=== PATIENT | male | born 1960 | race African-American/Black ===

== ENCOUNTER 2017-03-24 10:41 | Emergency (ER) | payer MEDICAID ==
[~2017-03-24] VITALS: Ht 172.7 cm; Wt 100.0 kg
[~2017-03-24 10:41] MED LIST: INSULIN
[2017-03-24] MEDS ORDERED: KETOROLAC 30MG/ML VIAL IV STA (12:05)
[2017-03-24 12:29] LABS: HEMATOCRIT. 36.4 % (42.0-52.0); HEMOGLOBIN. 12.6 g/dL (14.0-18.0); MEAN CORPUSCULAR HEMOGLOBIN 31.8 pg (28.0-32.0); MEAN CORPUSCULAR VOLUME 92.1 fL (80.0-94.0); MEAN PLATELET VOLUME 6.7 fl (7.4-10.4); PLATELET 338 x1000/uL (130-400); RED BLOOD CELL COUNT 3.96 mill/uL (4.7-6.1); RED CELL DISTRIBUTION WIDTH 12.6 % (11.6-14.6)
[2017-03-24 12:46] LABS: CARBON DIOXIDE 26 mEq/L (21-32); CHLORIDE 105 mEq/L (98-107); TROPONIN I < 0.02 ng/mL (0.00-0.04)
[2017-03-24 13:16] LABS: PLATELET ESTIMATE NORMAL
[2017-03-24 15:42] LABS: *AMPHETAMINES SCREEN URINE NEGATIVE (NEGATIVE); *BARBITURATES SCREEN URINE NEGATIVE (NEGATIVE); *BENZODIAZEPINES SCREEN URINE NEGATIVE (NEGATIVE); *COCAINE SCREEN URINE PRESUMTIVE POSITIVE (NEGATIVE); CANNABINOID URINE SCREEN NEGATIVE (NEGATIVE); METHADONE URINE SCREEN NEGATIVE (NEGATIVE); OPIATES URINE SCREEN NEGATIVE (NEGATIVE); PHENCYCLIDINE URINE SCREEN NEGATIVE (NEGATIVE)
[2017-03-24 16:47] VITALS: BP 106/64
== END 2017-03-24 17:02 | disposition home or self-care (01) ==
LOC: ER 11:13
DX: R07.89 Other chest pain (principal); F14.10 Cocaine abuse, uncomplicated; E11.9 Type 2 diabetes mellitus without complications; E78.00 Pure hypercholesterolemia, unspecified; I10 Essential (primary) hypertension; Z79.4 Long term (current) use of insulin; J45.909 Unspecified asthma, uncomplicated
CPT/HCPCS: 36415; 71010; 80053; 80305; 84484; 85025; 96374; 99285; J1885; Z7610

== ENCOUNTER 2017-11-01 15:18 | Inpatient (IN) | payer MEDICAID ==
[~2017-11-01] VITALS: Ht 182.9 cm; Wt 107.6 kg
[2017-11-01] MEDS ORDERED: MORPHINE SULFATE 4 MG/ML CPJ (NOT FOR IM USE) IV STA (16:15)
[2017-11-01] MEDS ORDERED: SODIUM CHLORIDE 0.9% 1,000 ML IV ONE (16:15)
[2017-11-01] MEDS ORDERED: FAMOTIDINE 20MG/2ML VIAL IV STA (16:15)
[2017-11-01] MEDS ORDERED: ONDANSETRON HCL 4MG/2ML VIAL IV STA (16:15)
[2017-11-01 16:54] LABS: CHLORIDE 98 mEq/L (98-107); HEMATOCRIT. 44.5 % (42.0-52.0); INR 1.2; MEAN CORPUSCULAR HEMOGLOBIN 32.1 pg (28.0-32.0); MEAN PLATELET VOLUME 7.4 fl (7.4-10.4); PLATELET 342 x1000/uL (130-400); PROTHROMBIN TIME 12.2 sec (9.4-11.6); RED BLOOD CELL COUNT 4.69 mill/uL (4.7-6.1); RED CELL DISTRIBUTION WIDTH 12.7 % (11.6-14.6)
[2017-11-01 17:00] LABS: TROPONIN I < 0.02 ng/mL (0.00-0.04)
[2017-11-01] MEDS ORDERED: INSULIN REGULAR (HUMULIN R) UD 100 UNITS/ML SYR SUBCUT ONE (17:15)
[2017-11-01] MEDS ORDERED: SODIUM CHLORIDE 0.9% 1000ML BAG (SEPSIS BOLUS) IV ONE (17:15)
[2017-11-01 17:19] LABS: PLATELET ESTIMATE NORMAL
[2017-11-01] MEDS ORDERED: INSULIN REGULAR (HUMULIN R) 300UNITS/3ML SUBCUT SCH (18:15)
[2017-11-01 20:30] VITALS: BP 130/71
[2017-11-01] MEDS ORDERED: CYCL5TAB PO (22:11)
[2017-11-01] MEDS ORDERED: NPH,100V SUBCUT (22:11)
[2017-11-01] MEDS ORDERED: TRAM50TA3 PO (22:11)
[2017-11-01] MEDS ORDERED: D-ME473S8 PO (22:11)
[2017-11-01] MEDS ORDERED: MELO-106 PO (22:11)
[2017-11-01] MEDS ORDERED: TERA5CAP4 PO (22:11)
[2017-11-01] MEDS ORDERED: HYDR-4009 PO (22:11)
[2017-11-01] MEDS ORDERED: GABA-531 PO (22:11)
[2017-11-01] MEDS ORDERED: ASPI-1158 PO (22:11)
[2017-11-01] MEDS ORDERED: OMEP20CA10 PO (22:11)
[2017-11-01] MEDS ORDERED: FLUT16SP15 INH (22:11)
[2017-11-01] MEDS ORDERED: METH500T6 PO (22:11)
[2017-11-01] MEDS ORDERED: AMLO10TA80 PO (22:11)
[2017-11-01] MEDS ORDERED: ATOR40TA70 PO (22:11)
[2017-11-01] MEDS ORDERED: ALBU18HF2 INH (22:11)
[2017-11-01] MEDS ORDERED: BENA20TA3 PO (22:12)
[2017-11-01] MEDS ORDERED: ACETAMINOPHEN 325MG TABLET PO PRN (23:00)
[2017-11-01] MEDS ORDERED: DOCUSATE SODIUM 100MG CAPSULE PO PRN (23:00)
[2017-11-01] MEDS ORDERED: CLONIDINE 0.1MG TABLET PO PRN (23:00)
[2017-11-01] MEDS ORDERED: ONDANSETRON HCL 4MG/2ML VIAL IV PRN (23:00)
[2017-11-01] MEDS ORDERED: METHOCARBAMOL 500MG TABLET PO PRN (23:15)
[2017-11-01] MEDS ORDERED: DEXTROSE 50% WATER 50ML SYRINGE IV PRN (23:45)
[2017-11-02] VITALS: BP 128/68
[2017-11-02] MEDS: SODIUM CHLORIDE 0.9% 1,000 ML IV SCH ×2 (00:11→21:32)
[2017-11-02] MEDS: HYDROCODONE/ACETAMINOPHEN 10/325MG TABLET PO PRN ×3 (00:14→21:32)
[2017-11-02 02:57] LABS: CLARITY URINE CLOUDY (CLEAR); COLOR URINE YELLOW (YELLOW); KETONES URINE NEGATIVE (NEGATIVE); LEUKOCYTE ESTERASE URINE NEGATIVE (NEGATIVE); NITRITE URINE NEGATIVE (NEGATIVE); OCCULT BLOOD URINE NEGATIVE (NEGATIVE); PROTEIN URINE 1+ (NEGATIVE); SPECIFIC GRAVITY URINE 1.025 (1.005-1.030); UROBILINOGEN URINE 0.2 E.U./dL (0.2-1.0)
[2017-11-02 03:18] LABS: *AMPHETAMINES SCREEN URINE NEGATIVE (NEGATIVE); *BARBITURATES SCREEN URINE NEGATIVE (NEGATIVE); *BENZODIAZEPINES SCREEN URINE NEGATIVE (NEGATIVE); *COCAINE SCREEN URINE PRESUMTIVE POSITIVE (NEGATIVE); CANNABINOID URINE SCREEN NEGATIVE (NEGATIVE); METHADONE URINE SCREEN NEGATIVE (NEGATIVE); OPIATES URINE SCREEN PRESUMTIVE POSITIVE (NEGATIVE); PHENCYCLIDINE URINE SCREEN NEGATIVE (NEGATIVE)
[2017-11-02 04:00] VITALS: BP 136/75
[2017-11-02] MEDS: BLOOD SUGAR DIAGNOSTIC STRIP TEST SCH ×4 (06:32→21:45)
[2017-11-02 07:07] LABS: HEMATOCRIT. 37.7 % (42.0-52.0); HEMOGLOBIN. 12.7 g/dL (14.0-18.0); MEAN CORPUSCULAR HEMOGLOBIN 31.8 pg (28.0-32.0); MEAN CORPUSCULAR VOLUME 94.2 fL (80.0-94.0); MEAN PLATELET VOLUME 7.3 fl (7.4-10.4); PLATELET 303 x1000/uL (130-400); RED CELL DISTRIBUTION WIDTH 12.4 % (11.6-14.6)
[2017-11-02 07:37] LABS: CHLORIDE 106 mEq/L (98-107)
[2017-11-02 07:55] LABS: CREATINE KINASE 499 IU/L (39-308); CREATINE KINASE MB FRACTION 4.1 ng/mL (0.5-3.6); TROPONIN I < 0.02 ng/mL (0.00-0.04)
[2017-11-02 08:00] VITALS: BP 152/87
[2017-11-02] MEDS: ENOXAPARIN 30MG/0.3ML SYR SUBCUT SCH ×2 (08:46→21:44)
[2017-11-02] MEDS: GABAPENTIN 300MG CAPSULE PO SCH ×3 (08:47→17:50)
[2017-11-02] MEDS: OMEPRAZOLE 20MG CAPSULE EXTENDED RELEASE PO SCH (08:47)
[2017-11-02] MEDS: AMLODIPINE 10MG TABLET PO SCH (08:48)
[2017-11-02] MEDS: BENAZEPRIL 20MG TABLET PO SCH (08:48)
[2017-11-02] MEDS: TERAZOSIN HCL 5MG CAPSULE PO SCH (08:48)
[2017-11-02] MEDS: ASPIRIN 81MG EC TABLET PO SCH (08:48)
[2017-11-02] MEDS: INSULIN LISPRO 100 UNITS/ML SUBCUT SCH ×4 (08:55→21:47)
[2017-11-02 12:00] VITALS: BP 132/77
[2017-11-02] MEDS ORDERED: LIDOCAINE HCL/PF 1% 10 MG/ML 5ML VIAL ONE (12:57)
[2017-11-02 15:38] LABS: CREATINE KINASE 456 IU/L (39-308); CREATINE KINASE MB FRACTION 3.8 ng/mL (0.5-3.6); TROPONIN I < 0.02 ng/mL (0.00-0.04)
[2017-11-02 16:07] LABS: PLATELET ESTIMATE NORMAL
[2017-11-02 16:55] VITALS: BP 127/73
[2017-11-02 20:00] VITALS: BP 129/72
[2017-11-02] MEDS: ATORVASTATIN CALCIUM 40MG TABLET PO SCH (21:32)
[2017-11-02] MEDS: INSULIN NPH (HUMULIN-N) 100 UNITS/ML 3ML VIAL SUBCUT SCH (21:42)
[2017-11-03] VITALS: BP_SYST 139; BP_SYST 142; BP_DIAS 74; BP_DIAS 75; BP_DIAS 81
[2017-11-03 04:00] VITALS: BP 119/75
[2017-11-03] MEDS: BLOOD SUGAR DIAGNOSTIC STRIP TEST SCH ×4 (05:46→21:43)
[2017-11-03 06:34] LABS: BASOPHILS % 0.4 % (0.0-2.0); EOSINOPHILS % 2.4 % (0.0-5.0); HEMOGLOBIN. 12.8 g/dL (14.0-18.0); MEAN CORPUSCULAR HEMOGLOBIN 31.6 pg (28.0-32.0); MEAN CORPUSCULAR VOLUME 93.5 fL (80.0-94.0); MEAN PLATELET VOLUME 7.4 fl (7.4-10.4); MONOCYTES % 12.4 % (2.0-8.0); NEUTROPHILS % 50.8 % (40.0-76.0); PLATELET 319 x1000/uL (130-400); RED BLOOD CELL COUNT 4.06 mill/uL (4.7-6.1); RED CELL DISTRIBUTION WIDTH 12.5 % (11.6-14.6)
[2017-11-03 06:58] LABS: CHLORIDE 106 mEq/L (98-107)
[2017-11-03 07:03] LABS: PHOSPHORUS 2.8 mg/dL (2.5-4.9)
[2017-11-03 08:00] VITALS: BP_SYST 126; BP_SYST 127; BP_SYST 155; BP_DIAS 73; BP_DIAS 75; BP_DIAS 86
[2017-11-03] MEDS: INSULIN LISPRO 100 UNITS/ML SUBCUT SCH ×4 (08:10→20:57)
[2017-11-03] MEDS: ASPIRIN 81MG EC TABLET PO SCH (08:47)
[2017-11-03] MEDS: OMEPRAZOLE 20MG CAPSULE EXTENDED RELEASE PO SCH (08:47)
[2017-11-03] MEDS: AMLODIPINE 10MG TABLET PO SCH (08:47)
[2017-11-03] MEDS: ENOXAPARIN 30MG/0.3ML SYR SUBCUT SCH ×2 (08:48→20:39)
[2017-11-03] MEDS: TERAZOSIN HCL 5MG CAPSULE PO SCH (08:48)
[2017-11-03] MEDS: BENAZEPRIL 20MG TABLET PO SCH (08:54)
[2017-11-03] MEDS: GABAPENTIN 300MG CAPSULE PO SCH ×3 (08:54→17:52)
[2017-11-03] MEDS ORDERED: POTASSIUM CHLORIDE 20MEQ TABLET SR PO NR (09:30)
[2017-11-03 11:02] LABS: HEPATITIS B SURFACE ANTIGEN NEGATIVE
[2017-11-03 12:00] VITALS: BP 126/71
[2017-11-03 16:00] VITALS: BP 121/72
[2017-11-03] MEDS: SODIUM CHLORIDE 0.9% 1,000 ML IV SCH (16:23)
[2017-11-03 20:16] VITALS: BP 140/77
[2017-11-03] MEDS: ATORVASTATIN CALCIUM 40MG TABLET PO SCH (20:37)
[2017-11-03] MEDS: HYDROCODONE/ACETAMINOPHEN 10/325MG TABLET PO PRN (20:38)
[2017-11-03] MEDS: INSULIN NPH (HUMULIN-N) 100 UNITS/ML 3ML VIAL SUBCUT SCH (20:58)
[2017-11-04] VITALS: BP_SYST 113; BP_SYST 124; BP_SYST 127; BP_DIAS 64; BP_DIAS 69; BP_DIAS 76
[2017-11-04] MEDS: GUAIFENESIN 200MG/10ML SUGAR FREE UDC PO PRN ×2 (00:55→08:20)
[2017-11-04] MEDS: SODIUM CHLORIDE 0.9% 1,000 ML IV SCH (00:56)
[2017-11-04 04:00] VITALS: BP 129/71
[2017-11-04] MEDS: BLOOD SUGAR DIAGNOSTIC STRIP TEST SCH (06:00)
[2017-11-04] MEDS: OMEPRAZOLE 20MG CAPSULE EXTENDED RELEASE PO SCH (07:33)
[2017-11-04] MEDS: INSULIN LISPRO 100 UNITS/ML SUBCUT SCH (07:34)
[2017-11-04 08:00] VITALS: BP_SYST 112; BP_SYST 120; BP_SYST 130; BP_DIAS 55; BP_DIAS 71; BP_DIAS 80
[2017-11-04 08:11] LABS: EOSINOPHILS % 2.2 % (0.0-5.0); HEMATOCRIT. 37.8 % (42.0-52.0); HEMOGLOBIN. 12.7 g/dL (14.0-18.0); LYMPHOCYTES % 30.4 % (20.0-50.0); MEAN CORPUSCULAR HEMOGLOBIN 31.3 pg (28.0-32.0); MEAN CORPUSCULAR VOLUME 92.9 fL (80.0-94.0); MEAN PLATELET VOLUME 7.7 fl (7.4-10.4); MONOCYTES % 10.7 % (2.0-8.0); NEUTROPHILS % 55.7 % (40.0-76.0); PLATELET 324 x1000/uL (130-400); RED BLOOD CELL COUNT 4.07 mill/uL (4.7-6.1); RED CELL DISTRIBUTION WIDTH 12.5 % (11.6-14.6)
[2017-11-04] MEDS: ASPIRIN 81MG EC TABLET PO SCH (08:19)
[2017-11-04] MEDS: GABAPENTIN 300MG CAPSULE PO SCH (08:20)
[2017-11-04] MEDS: AMLODIPINE 10MG TABLET PO SCH (08:20)
[2017-11-04] MEDS: ENOXAPARIN 30MG/0.3ML SYR SUBCUT SCH (08:20)
[2017-11-04] MEDS: TERAZOSIN HCL 5MG CAPSULE PO SCH (08:20)
[2017-11-04] MEDS: BENAZEPRIL 20MG TABLET PO SCH (08:20)
[2017-11-04 09:01] LABS: CHLORIDE 109 mEq/L (98-107); PHOSPHORUS 2.9 mg/dL (2.5-4.9)
[2017-11-04 09:27] VITALS: BP 130/80
[2017-11-04 12:00] VITALS: BP 118/50
== END 2017-11-04 12:20 | disposition home or self-care (01) | DRG 204 ==
LOC: ER 15:18 → 7WST 17:22 → EDBEDREQ 17:25 → ENRESERV 19:30
PROVIDERS: ADMIT Internal Medicine; ATTEND Internal Medicine
PROC: 4A00X4Z Measurement of Central Nervous Electrical Activity, External Approach (ICD-10-PCS; principal; 2017-11-03)
DX: I95.1 Orthostatic hypotension (principal); E87.2 Acidosis; E11.22 Type 2 diabetes mellitus with diabetic chronic kidney disease; N17.9 Acute kidney failure, unspecified; N18.3 Chronic kidney disease, stage 3 (moderate); E11.40 Type 2 diabetes mellitus with diabetic neuropathy, unspecified; E87.1 Hypo-osmolality and hyponatremia; F14.129 Cocaine abuse with intoxication, unspecified; Z83.3 Family history of diabetes mellitus; E11.65 Type 2 diabetes mellitus with hyperglycemia; J45.909 Unspecified asthma, uncomplicated; D64.9 Anemia, unspecified; E78.00 Pure hypercholesterolemia, unspecified; E66.9 Obesity, unspecified; F17.200 Nicotine dependence, unspecified, uncomplicated; I12.9 Hypertensive chronic kidney disease with stage 1 through stage 4 chronic kidney disease, or unspecified chronic kidney disease; W18.39XA Other fall on same level, initial encounter; K21.9 Gastro-esophageal reflux disease without esophagitis; Z79.82 Long term (current) use of aspirin; Z82.49 Family history of ischemic heart disease and other diseases of the circulatory system; Y93.89 Activity, other specified; Y92.89 Other specified places as the place of occurrence of the external cause; Y99.8 Other external cause status; Z79.4 Long term (current) use of insulin; Z72.89 Other problems related to lifestyle; Z68.32 Body mass index [BMI] 32.0-32.9, adult; T40.5X5A Adverse effect of cocaine, initial encounter
CPT/HCPCS: 36415; 70544; 70553; 71045; 76770; 80048; 80053; 80061; 80305; 81003; 82550; 82553; 82962; 83036; 83605; 83690; 83735; 83880; 84100; 84443; 84484; 85025; 85610; 86803; 87040; 87086; 87186; 87340; 93005; 93306; 93880; 96361; 96372; 96374; 96375; 97116; 97162; 97165; 99285; G0482; J1650; J1815; J2270; J2405; J3490; J7030

== ENCOUNTER 2019-04-09 07:18 | Emergency (ER) | payer MEDICAID ==
[~2019-04-09] VITALS: Ht 175.3 cm; Wt 110.0 kg
[~2019-04-09 07:18] MED LIST changes: +ALBU18HF2 INH; +AMLO10TA80 PO; +ASPI-1158 PO; +ATOR40TA70 PO; +BENA20TA10 PO; +CYCL5TAB PO; +D-ME473S8 PO; +FLUT16SP15 INH; +GABA-531 PO; +HYDR-4009 PO; -INSULIN; +MELO-106 PO; +METH500T6 PO; +NPH,100V SUBCUT; +OMEP20CA5 PO; +TERA5CAP4 PO; +TRAM50TA3 PO
[2019-04-09] MEDS ORDERED: LIDOCAINE HCL/PF 1% 10 MG/ML 5ML VIAL IJ ONE (09:15)
[2019-04-09] MEDS ORDERED: BACITRACIN ZINC OINT UDPKT TOP ONE (09:15)
[2019-04-09] MEDS ORDERED: TETANUS, DIPHTHERIA, PERTUSSIS VAC/PF 0.5ML (>7YR OLD) IM ONE (09:15)
[2019-04-09] MEDS ORDERED: BACITRACIN 15GM TUBE TOP NR (10:15)
[2019-04-09 11:40] VITALS: BP 135/82
== END 2019-04-09 11:43 | disposition home or self-care (01) ==
LOC: ER 07:18
DX: S01.511A Laceration without foreign body of lip, initial encounter (principal); J45.909 Unspecified asthma, uncomplicated; E11.9 Type 2 diabetes mellitus without complications; I10 Essential (primary) hypertension; R55 Syncope and collapse; Z87.448 Personal history of other diseases of urinary system; Z79.4 Long term (current) use of insulin; Z79.899 Other long term (current) drug therapy; Y04.2XXA Assault by strike against or bumped into by another person, initial encounter; Y93.89 Activity, other specified; Y92.89 Other specified places as the place of occurrence of the external cause; Y99.8 Other external cause status
CPT/HCPCS: 12011; 90471; 90715; 99283; J3490

== ENCOUNTER 2019-04-11 12:35 | Emergency (ER) | payer MEDICAID ==
[~2019-04-11] VITALS: Ht 167.6 cm; Wt 108.0 kg
[2019-04-11 13:28] VITALS: BP 149/78
[2019-04-11] MEDS ORDERED: BACITRACIN ZINC OINT UDPKT TOP ONE (13:30)
== END 2019-04-11 13:28 | disposition home or self-care (01) ==
LOC: ER 12:35
DX: Z48.00 Encounter for change or removal of nonsurgical wound dressing (principal); I10 Essential (primary) hypertension; E11.9 Type 2 diabetes mellitus without complications; J45.909 Unspecified asthma, uncomplicated
CPT/HCPCS: 99282

== ENCOUNTER 2019-04-26 11:58 | Emergency (ER) | payer MEDICAID ==
[~2019-04-26] VITALS: Ht 167.6 cm; Wt 107.0 kg
[2019-04-26 13:13] VITALS: BP 160/91
== END 2019-04-26 13:13 | disposition home or self-care (01) ==
LOC: ER 13:06
DX: S01.511D Laceration without foreign body of lip, subsequent encounter (principal); X58.XXXD Exposure to other specified factors, subsequent encounter; J45.909 Unspecified asthma, uncomplicated; E11.9 Type 2 diabetes mellitus without complications; I10 Essential (primary) hypertension; F17.200 Nicotine dependence, unspecified, uncomplicated; F12.10 Cannabis abuse, uncomplicated; Z79.82 Long term (current) use of aspirin; Z79.4 Long term (current) use of insulin; Z79.899 Other long term (current) drug therapy
CPT/HCPCS: 99281

== ENCOUNTER 2020-02-02 22:45 | Inpatient (IN) | payer MEDICAID ==
[~2020-02-02] VITALS: Ht 165.1 cm; Wt 106.6 kg
[~2020-02-02 22:45] MED LIST changes: +OMEP20CA14 PO; -OMEP20CA5 PO
[2020-02-02] MEDS ORDERED: IPRATROPIUM BROMIDE (0.02%) 0.5MG/2.5ML NEB HHN STA (23:43)
[2020-02-02] MEDS ORDERED: METHYLPREDNISOLONE SOD SUCC 125 MG/2 ML VIAL IV STA (23:43)
[2020-02-02] MEDS ORDERED: ALBUTEROL (0.083%) 2.5MG/3ML NEB HHN STA (23:43)
[2020-02-03 00:32] LABS: BASOPHILS % 1.6 % (0.0-2.0); EOSINOPHILS % 1.7 % (0.0-5.0); HEMATOCRIT. 38.5 % (42.0-52.0); HEMOGLOBIN. 13.4 g/dL (14.0-18.0); LYMPHOCYTES % 35.3 % (20.0-50.0); MEAN CORPUSCULAR HEMOGLOBIN 32.4 pg (28.0-32.0); MEAN CORPUSCULAR VOLUME 93.2 fL (80.0-94.0); MEAN PLATELET VOLUME 7.8 fl (7.4-10.4); MONOCYTES % 4.6 % (2.0-8.0); NEUTROPHILS % 56.8 % (40.0-76.0); PLATELET 351 x1000/uL (130-400); RED BLOOD CELL COUNT 4.13 mill/uL (4.7-6.1); RED CELL DISTRIBUTION WIDTH 13.1 % (11.6-14.6)
[2020-02-03 00:34] LABS: CHLORIDE 107 mEq/L (98-107)
[2020-02-03] MEDS ORDERED: METHOCARBAMOL 500MG TABLET PO PRN (12:30)
[2020-02-03] MEDS ORDERED: ENOXAPARIN 40MG/0.4ML SYR SUBCUT SCH (12:30)
[2020-02-03] MEDS ORDERED: CLONIDINE 0.1MG TABLET PO PRN (12:30)
[2020-02-03] MEDS ORDERED: ONDANSETRON HCL 4MG/2ML INJ IV PRN (12:30)
[2020-02-03] MEDS ORDERED: HYDROCODONE/ACETAMINOPHEN 10/325MG TABLET PO PRN (12:30)
[2020-02-03] MEDS ORDERED: ACETAMINOPHEN 325MG TABLET PO PRN (12:30)
[2020-02-03 12:55] VITALS: BP 144/73
[2020-02-03] MEDS: GABAPENTIN 300MG CAPSULE PO SCH ×2 (14:01→18:18)
[2020-02-03] MEDS: OMEPRAZOLE 20MG CAPSULE EXTENDED RELEASE PO SCH (14:02)
[2020-02-03] MEDS: BENAZEPRIL 10MG TABLET PO SCH (14:02)
[2020-02-03] MEDS: TERAZOSIN HCL 5MG CAPSULE PO SCH (14:03)
[2020-02-03] MEDS: AMLODIPINE 10MG TABLET PO SCH (14:03)
[2020-02-03] MEDS: ASPIRIN 81MG EC TABLET PO SCH (14:03)
[2020-02-03] MEDS: METHYLPREDNISOLONE SOD SUCC 125 MG/2 ML VIAL IV SCH ×2 (14:04→21:28)
[2020-02-03] MEDS: ENOXAPARIN 30MG/0.3ML SYR SUBCUT SCH ×2 (14:04→21:27)
[2020-02-03 16:00] VITALS: BP 100/55
[2020-02-03 17:16] LABS: CHLORIDE 100 mEq/L (98-107); HEMATOCRIT. 39.1 % (42.0-52.0); HEMOGLOBIN. 13.3 g/dL (14.0-18.0); MEAN CORPUSCULAR HEMOGLOBIN 32.1 pg (28.0-32.0); MEAN CORPUSCULAR VOLUME 94.4 fL (80.0-94.0); MEAN PLATELET VOLUME 8.2 fl (7.4-10.4); PLATELET 372 x1000/uL (130-400); RED BLOOD CELL COUNT 4.14 mill/uL (4.7-6.1); RED CELL DISTRIBUTION WIDTH 12.9 % (11.6-14.6)
[2020-02-03 17:25] LABS: CREATINE KINASE 770 IU/L (39-308)
[2020-02-03 17:27] LABS: CREATINE KINASE MB FRACTION 8.5 ng/mL (0.5-3.6)
[2020-02-03 18:05] LABS: PLATELET ESTIMATE NORMAL
[2020-02-03] MEDS ORDERED: DEXTROSE 50% WATER 50ML SYRINGE IV NR (18:15)
[2020-02-03] MEDS ORDERED: INSULIN REGULAR (HUMULIN R) UD 100 UNITS/ML SYR IV NR (19:00)
[2020-02-03 20:00] VITALS: BP 118/70
[2020-02-03] MEDS: IPRATROPIUM/ALBUTEROL 0.5-3(2.5)MG/3ML NEB HHN SCH ×2 (21:00→23:51)
[2020-02-03] MEDS ORDERED: INSULIN NPH (HUMULIN-N) 100 UNITS/ML 3ML VIAL SUBCUT SCH (21:00)
[2020-02-03 21:26] LABS: *AMPHETAMINES SCREEN URINE NEGATIVE (NEGATIVE)
[2020-02-03 21:27] LABS: *BARBITURATES SCREEN URINE NEGATIVE (NEGATIVE); *BENZODIAZEPINES SCREEN URINE NEGATIVE (NEGATIVE); *COCAINE SCREEN URINE PRESUMTIVE POSITIVE (NEGATIVE); METHADONE URINE SCREEN NEGATIVE (NEGATIVE); OPIATES URINE SCREEN NEGATIVE (NEGATIVE)
[2020-02-03] MEDS: ATORVASTATIN CALCIUM 40MG TABLET PO SCH (21:27)
[2020-02-03 21:28] LABS: CANNABINOID URINE SCREEN NEGATIVE (NEGATIVE); PHENCYCLIDINE URINE SCREEN PRESUMTIVE POSITIVE (NEGATIVE)
[2020-02-03] MEDS ORDERED: DEXTROSE 50% WATER 50ML SYRINGE IV PRN (23:30)
[2020-02-04] VITALS (7 sets, daily range): BP systolic 112–144; BP diastolic 34–70
[2020-02-04 00:39] LABS: CHLORIDE 97 mEq/L (98-107)
[2020-02-04 00:48] LABS: CREATINE KINASE 658 IU/L (39-308)
[2020-02-04 00:50] LABS: CREATINE KINASE MB FRACTION 8.2 ng/mL (0.5-3.6)
[2020-02-04] MEDS ORDERED: DEXTROSE 50% WATER 50ML SYRINGE IV PRN (01:00)
[2020-02-04] MEDS: INSULIN LISPRO 100 UNITS/ML SUBCUT SCH ×6 (01:34→23:16)
[2020-02-04] MEDS ORDERED: SODIUM POLYSTYRENE SULFONATE 15 G/60 ML BOT PO NR (02:00)
[2020-02-04] MEDS: IPRATROPIUM/ALBUTEROL 0.5-3(2.5)MG/3ML NEB HHN SCH ×5 (04:18→20:55)
[2020-02-04 05:53] LABS: HEMATOCRIT. 38.5 % (42.0-52.0); HEMOGLOBIN. 13.2 g/dL (14.0-18.0); MEAN CORPUSCULAR HEMOGLOBIN 32.1 pg (28.0-32.0); MEAN CORPUSCULAR VOLUME 93.4 fL (80.0-94.0); MEAN PLATELET VOLUME 8.1 fl (7.4-10.4); PLATELET 366 x1000/uL (130-400); RED BLOOD CELL COUNT 4.12 mill/uL (4.7-6.1); RED CELL DISTRIBUTION WIDTH 13.3 % (11.6-14.6)
[2020-02-04] MEDS: BLOOD SUGAR DIAGNOSTIC STRIP TEST SCH ×4 (06:14→21:17)
[2020-02-04] MEDS: METHYLPREDNISOLONE SOD SUCC 125 MG/2 ML VIAL IV SCH (06:14)
[2020-02-04] MEDS: OMEPRAZOLE 20MG CAPSULE EXTENDED RELEASE PO SCH (06:14)
[2020-02-04] MEDS ORDERED: BLOOD SUGAR DIAGNOSTIC STRIP TEST SCH (06:45)
[2020-02-04] MEDS ORDERED: INSULIN LISPRO 100 UNITS/ML SUBCUT SCH ×2 (07:15)
[2020-02-04] MEDS: AMLODIPINE 10MG TABLET PO SCH (08:37)
[2020-02-04] MEDS: GABAPENTIN 300MG CAPSULE PO SCH ×3 (08:37→17:38)
[2020-02-04] MEDS: TERAZOSIN HCL 5MG CAPSULE PO SCH (08:38)
[2020-02-04] MEDS: ASPIRIN 81MG EC TABLET PO SCH (08:38)
[2020-02-04] MEDS: ENOXAPARIN 30MG/0.3ML SYR SUBCUT SCH ×2 (08:39→21:48)
[2020-02-04] MEDS: BENAZEPRIL 10MG TABLET PO SCH (08:39)
[2020-02-04] MEDS: PREDNISONE 20MG TABLET PO SCH (10:56)
[2020-02-04] MEDS: INSULIN GLARGINE UD 100 UNITS/ML SYR SUBCUT SCH ×2 (11:00→21:49)
[2020-02-04 13:40] LABS: PLATELET ESTIMATE NORMAL
[2020-02-04] MEDS: ATORVASTATIN CALCIUM 40MG TABLET PO SCH (21:47)
[2020-02-05] VITALS: BP 127/56
[2020-02-05] MEDS: IPRATROPIUM/ALBUTEROL 0.5-3(2.5)MG/3ML NEB HHN SCH ×2 (00:29→04:31)
[2020-02-05 04:00] VITALS: BP 113/59
[2020-02-05] MEDS: BLOOD SUGAR DIAGNOSTIC STRIP TEST SCH (06:08)
[2020-02-05] MEDS: PREDNISONE 20MG TABLET PO SCH (06:39)
[2020-02-05] MEDS: OMEPRAZOLE 20MG CAPSULE EXTENDED RELEASE PO SCH (06:39)
[2020-02-05] MEDS: INSULIN LISPRO 100 UNITS/ML SUBCUT SCH (06:39)
[2020-02-05] MEDS ORDERED: POTASSIUM CHLORIDE 20MEQ TABLET SR PO SCH (07:00)
[2020-02-05 08:00] VITALS: BP 122/69
[2020-02-05] MEDS: BENAZEPRIL 10MG TABLET PO SCH (09:00)
[2020-02-05] MEDS: ENOXAPARIN 30MG/0.3ML SYR SUBCUT SCH (09:00)
[2020-02-05] MEDS: TERAZOSIN HCL 5MG CAPSULE PO SCH (09:00)
[2020-02-05] MEDS: AMLODIPINE 10MG TABLET PO SCH (09:00)
[2020-02-05] MEDS: ASPIRIN 81MG EC TABLET PO SCH (09:00)
[2020-02-05] MEDS: GABAPENTIN 300MG CAPSULE PO SCH (09:00)
== END 2020-02-05 08:30 | disposition left against medical advice (07) | DRG 140 ==
LOC: ER 22:45 → MICUSO 02-03 01:50 → EDBEDREQ 02-03 01:54 → 5WST 02-03 12:58
PROVIDERS: ADMIT Internal Medicine; ATTEND Internal Medicine
DX: J44.1 Chronic obstructive pulmonary disease with (acute) exacerbation (principal); E11.42 Type 2 diabetes mellitus with diabetic polyneuropathy; E11.65 Type 2 diabetes mellitus with hyperglycemia; M94.0 Chondrocostal junction syndrome [Tietze]; E66.9 Obesity, unspecified; F17.200 Nicotine dependence, unspecified, uncomplicated; Z53.29 Procedure and treatment not carried out because of patient's decision for other reasons; E78.5 Hyperlipidemia, unspecified; F12.90 Cannabis use, unspecified, uncomplicated; I10 Essential (primary) hypertension; Z79.51 Long term (current) use of inhaled steroids; Z79.899 Other long term (current) drug therapy; Z79.82 Long term (current) use of aspirin; Z71.3 Dietary counseling and surveillance; Z71.6 Tobacco abuse counseling; Z79.1 Long term (current) use of non-steroidal anti-inflammatories (NSAID); Z79.4 Long term (current) use of insulin
CPT/HCPCS: 36415; 71045; 80048; 80053; 80305; 82550; 82553; 82962; 83036; 83880; 84484; 85025; 93005; 93970; 94640; 96374; 99285; J1650; J1815; J2930; J7512

== ENCOUNTER 2020-03-16 17:16 | Emergency (ER) | payer MEDICAID ==
[~2020-03-16] VITALS: Ht 167.6 cm; Wt 106.0 kg
[2020-03-16 19:50] VITALS: BP 121/67
== END 2020-03-16 20:00 | disposition home or self-care (01) ==
LOC: ER 17:16
DX: T18.0XXA Foreign body in mouth, initial encounter (principal); X58.XXXA Exposure to other specified factors, initial encounter; Y93.89 Activity, other specified; Y92.89 Other specified places as the place of occurrence of the external cause; I10 Essential (primary) hypertension; E11.9 Type 2 diabetes mellitus without complications; J45.909 Unspecified asthma, uncomplicated; J44.9 Chronic obstructive pulmonary disease, unspecified; Z79.4 Long term (current) use of insulin; Z79.899 Other long term (current) drug therapy; Z79.51 Long term (current) use of inhaled steroids
CPT/HCPCS: 99281

== ENCOUNTER 2021-11-01 14:37 | Inpatient (IN) | payer MEDICAID ==
[~2021-11-01] VITALS: Ht 167.6 cm; Wt 99.3 kg
[~2021-11-01 14:37] MED LIST changes: -ASPI-1158 PO; +ASPI-1406 PO; -GABA-531 PO; +GABA-532 PO; +METH-773 PO; -METH500T6 PO
[2021-11-01] MEDS ORDERED: TETANUS, DIPHTHERIA, PERTUSSIS VAC/PF 0.5ML (>10YR OLD) IM ONE (15:00)
[2021-11-01] MEDS ORDERED: LIDOCAINE HCL/PF 1% 10 MG/ML 5ML VIAL INFIL ONE (15:00)
[2021-11-01] MEDS ORDERED: BACITRACIN ZINC OINT UDPKT TOP ONE (15:00)
[2021-11-01] MEDS ORDERED: LIDOCAINE HCL 1% 10 MG/ML 10ML VIAL INJ ONE (15:15)
[2021-11-01] MEDS ORDERED: CEFTRIAXONE 1 G PREMIX 50 ML IV ONE (17:00)
[2021-11-01] MEDS ORDERED: SODIUM CHLORIDE 0.9% 1,000 ML IV ONE (17:00)
[2021-11-01] MEDS ORDERED: VANCOMYCIN 1G PREMIX 200 ML IV SCH (18:00)
[2021-11-01 18:41] LABS: CHLORIDE 102 mEq/L (98-107)
[2021-11-01] MEDS ORDERED: MORPHINE SULFATE 4 MG/ML CPJ (NOT FOR IM USE) IV NR (18:45)
[2021-11-01 19:54] LABS: BASOPHILS % 0.9 % (0.0-2.0); EOSINOPHILS % 2.1 % (0.0-5.0); HEMATOCRIT. 30.4 % (42.0-52.0); HEMOGLOBIN. 10.4 g/dL (14.0-18.0); LYMPHOCYTES % 38.5 % (20.0-50.0); MEAN CORPUSCULAR HEMOGLOBIN 31.3 pg (28.0-32.0); MEAN CORPUSCULAR VOLUME 91.2 fL (80.0-94.0); MEAN PLATELET VOLUME 6.5 fl (7.4-10.4); MONOCYTES % 7.1 % (2.0-8.0); NEUTROPHILS % 51.4 % (40.0-76.0); PLATELET 392 x1000/uL (130-400); RED BLOOD CELL COUNT 3.33 mill/uL (4.7-6.1); RED CELL DISTRIBUTION WIDTH 12.5 % (11.6-14.6)
[2021-11-01] MEDS: VANCOMYCIN 1G PREMIX 200 ML IV SCH (23:40)
[2021-11-02] MEDS ORDERED: KETOROLAC 15MG/ML VIAL IV ONE (01:00)
[2021-11-02 06:16] VITALS: BP 140/83
[2021-11-02 08:00] VITALS: BP 135/81
[2021-11-02] MEDS ORDERED: DEXTROSE 50% WATER 50ML SYRINGE IV PRN (08:15)
[2021-11-02] MEDS ORDERED: ACETAMINOPHEN 325MG TABLET PO PRN (08:30)
[2021-11-02] MEDS: OMEPRAZOLE 20MG CAPSULE EXTENDED RELEASE PO SCH (08:40)
[2021-11-02] MEDS: PIPERACILLIN/TAZOBACTAM 3.375 G in DEXTROSE 5% WATER 50 ML IV SCH ×3 (09:35→21:07)
[2021-11-02] MEDS: MORPHINE SULFATE 2 MG/ML CPJ (NOT FOR IM USE) IV PRN ×2 (09:47→17:30)
[2021-11-02] MEDS: BLOOD SUGAR DIAGNOSTIC STRIP TEST SCH ×3 (11:56→21:04)
[2021-11-02 12:00] VITALS: BP 175/72
[2021-11-02] MEDS: INSULIN LISPRO 100 UNITS/ML SUBCUT SCH ×3 (12:22→21:05)
[2021-11-02] MEDS: CLONIDINE 0.1MG TABLET PO PRN (12:22)
[2021-11-02 14:50] LABS: BASOPHILS % 0.8 % (0.0-2.0); EOSINOPHILS % 3.2 % (0.0-5.0); HEMATOCRIT. 30.5 % (42.0-52.0); HEMOGLOBIN. 10.6 g/dL (14.0-18.0); LYMPHOCYTES % 42.8 % (20.0-50.0); MEAN CORPUSCULAR HEMOGLOBIN 31.4 pg (28.0-32.0); MEAN CORPUSCULAR VOLUME 90.5 fL (80.0-94.0); MEAN PLATELET VOLUME 6.4 fl (7.4-10.4); MONOCYTES % 6.1 % (2.0-8.0); NEUTROPHILS % 47.1 % (40.0-76.0); PLATELET 397 x1000/uL (130-400); RED BLOOD CELL COUNT 3.37 mill/uL (4.7-6.1); RED CELL DISTRIBUTION WIDTH 12.7 % (11.6-14.6)
[2021-11-02 15:07] LABS: CHLORIDE 105 mEq/L (98-107)
[2021-11-02 16:00] VITALS: BP 138/62
[2021-11-02] MEDS ORDERED: INFLUENZA VACCINE 05/PF 0.5 ML SYRINGE IM ONE (16:45)
[2021-11-02] MEDS: VANCOMYCIN 1G PREMIX 200 ML IV SCH (16:56)
[2021-11-02 20:00] VITALS: BP 140/77
[2021-11-02] MEDS ORDERED: NALOXONE HCL 0.4MG/ML VIAL IV PRN (20:45)
[2021-11-03 04:00] VITALS: BP 162/68
[2021-11-03] MEDS: PIPERACILLIN/TAZOBACTAM 3.375 G in DEXTROSE 5% WATER 50 ML IV SCH ×3 (05:25→22:50)
[2021-11-03] MEDS: HYDROCODONE/ACETAMINOPHEN 5/325MG TABLET PO PRN ×3 (05:25→22:51)
[2021-11-03] MEDS: CLONIDINE 0.1MG TABLET PO PRN (05:26)
[2021-11-03] MEDS: OMEPRAZOLE 20MG CAPSULE EXTENDED RELEASE PO SCH (06:49)
[2021-11-03] MEDS: BLOOD SUGAR DIAGNOSTIC STRIP TEST SCH ×4 (06:49→21:00)
[2021-11-03 08:00] VITALS: BP 172/77
[2021-11-03] MEDS: INSULIN LISPRO 100 UNITS/ML SUBCUT SCH ×4 (09:01→23:50)
[2021-11-03] MEDS: VANCOMYCIN 1G PREMIX 200 ML IV SCH (10:49)
[2021-11-03 12:00] VITALS: BP 150/51
[2021-11-03] MEDS ORDERED: LIDOCAINE HCL 1% 10 MG/ML 10ML VIAL ONE ×2 (12:27→18:24)
[2021-11-03] MEDS: LISINOPRIL 20MG TABLET PO SCH (13:51)
[2021-11-03] MEDS: GABAPENTIN 300MG CAPSULE PO SCH ×2 (13:51→22:49)
[2021-11-03] MEDS: AMLODIPINE 10MG TABLET PO SCH (13:52)
[2021-11-03 16:00] VITALS: BP 152/72
[2021-11-03] MEDS ORDERED: INS NPH/REG HM 70-30 100 UNITS/ML 3ML VIAL (HUMULIN 70-30) SUBCUT SCH (17:00)
[2021-11-03] MEDS ORDERED: POLYMYXIN B SULFATE 500000 UNITS/VIAL ONE (18:25)
[2021-11-03] MEDS ORDERED: BUPIVACAINE HCL/PF 0.5% (5MG/ML) 10ML ONE (18:25)
[2021-11-03] MEDS ORDERED: PROPOFOL 200MG/20ML VIAL IV ONE (19:12)
[2021-11-03] MEDS ORDERED: MIDAZOLAM HCL 2 MG/2 ML VIAL ONE (19:13)
[2021-11-03] MEDS ORDERED: CEFAZOLIN SODIUM 1000MG/VIAL ONE (19:13)
[2021-11-03] MEDS ORDERED: FENTANYL CITRATE/PF 50MCG/ML 2ML VIAL ONE (19:23)
[2021-11-03] MEDS ORDERED: ONDANSETRON HCL 4MG/2ML INJ IV PRN (20:00)
[2021-11-03] MEDS ORDERED: FENTANYL CITRATE/PF 50MCG/ML 2ML VIAL IV PRN (20:00)
[2021-11-03] MEDS: HYDROMORPHONE HCL/PF 2MG/ML CPJ IV PRN ×3 (20:02→20:44)
[2021-11-03] MEDS: ATORVASTATIN CALCIUM 40MG TABLET PO SCH (22:49)
[2021-11-04 04:00] VITALS: BP 125/77
[2021-11-04] MEDS: VANCOMYCIN 1G PREMIX 200 ML IV SCH ×2 (05:41→18:09)
[2021-11-04] MEDS: PIPERACILLIN/TAZOBACTAM 3.375 G in DEXTROSE 5% WATER 50 ML IV SCH ×2 (05:41→13:18)
[2021-11-04] MEDS: GABAPENTIN 300MG CAPSULE PO SCH ×3 (05:49→21:01)
[2021-11-04] MEDS: HYDROCODONE/ACETAMINOPHEN 5/325MG TABLET PO PRN ×2 (05:49→17:21)
[2021-11-04] MEDS: OMEPRAZOLE 20MG CAPSULE EXTENDED RELEASE PO SCH (06:01)
[2021-11-04 07:20] LABS: CHLORIDE 100 mEq/L (98-107)
[2021-11-04] MEDS: BLOOD SUGAR DIAGNOSTIC STRIP TEST SCH ×4 (07:33→20:45)
[2021-11-04] MEDS: INSULIN LISPRO 100 UNITS/ML SUBCUT SCH ×4 (07:50→21:00)
[2021-11-04 08:00] VITALS: BP 129/52
[2021-11-04] MEDS ORDERED: OMEPRAZOLE 20MG CAPSULE EXTENDED RELEASE PO SCH (09:00)
[2021-11-04] MEDS: AMLODIPINE 10MG TABLET PO SCH (09:00)
[2021-11-04] MEDS: ASPIRIN 81MG EC TABLET PO SCH (09:00)
[2021-11-04] MEDS: LISINOPRIL 20MG TABLET PO SCH (09:00)
[2021-11-04 11:12] LABS: BASOPHILS % 1.4 % (0.0-2.0); EOSINOPHILS % 0.1 % (0.0-5.0); HEMATOCRIT. 30.3 % (42.0-52.0); HEMOGLOBIN. 10.8 g/dL (14.0-18.0); LYMPHOCYTES % 15.2 % (20.0-50.0); MEAN CORPUSCULAR HEMOGLOBIN 31.9 pg (28.0-32.0); MEAN CORPUSCULAR VOLUME 89.3 fL (80.0-94.0); MEAN PLATELET VOLUME 7.4 fl (7.4-10.4); MONOCYTES % 2.5 % (2.0-8.0); NEUTROPHILS % 80.8 % (40.0-76.0); PLATELET 449 x1000/uL (130-400); RED BLOOD CELL COUNT 3.39 mill/uL (4.7-6.1); RED CELL DISTRIBUTION WIDTH 12.8 % (11.6-14.6)
[2021-11-04 12:00] VITALS: BP 122/53
[2021-11-04 16:00] VITALS: BP 118/58
[2021-11-04] MEDS: INS NPH/REG HM 70-30 100 UNITS/ML 10ML VIAL (HUMULIN 70-30) SUBCUT SCH (18:11)
[2021-11-04 20:00] VITALS: BP 115/49
[2021-11-04] MEDS: ATORVASTATIN CALCIUM 40MG TABLET PO SCH (20:55)
[2021-11-05] VITALS (7 sets, daily range): BP systolic 113–129; BP diastolic 50–65
[2021-11-05] MEDS: MORPHINE SULFATE 2 MG/ML CPJ (NOT FOR IM USE) IV PRN ×2 (03:16→18:20)
[2021-11-05] MEDS: VANCOMYCIN 1G PREMIX 200 ML IV SCH (06:06)
[2021-11-05] MEDS: GABAPENTIN 300MG CAPSULE PO SCH ×2 (06:09→13:16)
[2021-11-05] MEDS: HYDROCODONE/ACETAMINOPHEN 5/325MG TABLET PO PRN ×2 (06:20→14:53)
[2021-11-05] MEDS: FAMOTIDINE 20MG TABLET PO SCH ×2 (06:21→17:12)
[2021-11-05] MEDS: BLOOD SUGAR DIAGNOSTIC STRIP TEST SCH ×3 (06:57→17:12)
[2021-11-05] MEDS: INSULIN LISPRO 100 UNITS/ML SUBCUT SCH ×3 (07:50→17:12)
[2021-11-05] MEDS ORDERED: INS NPH/REG HM 70-30 100 UNITS/ML 10ML VIAL (HUMULIN 70-30) SUBCUT SCH (09:00)
[2021-11-05] MEDS: AMLODIPINE 10MG TABLET PO SCH (09:45)
[2021-11-05] MEDS: ASPIRIN 81MG EC TABLET PO SCH (09:45)
[2021-11-05] MEDS: LISINOPRIL 20MG TABLET PO SCH (09:46)
[2021-11-05] MEDS ORDERED: LINE600T11 MT (16:52)
[2021-11-05] MEDS: INS NPH/REG HM 70-30 100 UNITS/ML 10ML VIAL (HUMULIN 70-30) SUBCUT SCH (17:00)
[2021-11-05] MEDS ORDERED: VANCOMYCIN 1G PREMIX 200 ML IV SCH (21:00)
== END 2021-11-05 21:20 | disposition home health service (06) | DRG 383 ==
LOC: ER 14:37 → MICUSO 21:15 → EDBEDREQSVC 21:31 → EDBEDREQTM 21:31 → EDBEDREQ 21:31 → 6EST 11-02 05:13
PROVIDERS: ADMIT Internal Medicine; ATTEND Internal Medicine
PROC: 0H9JXZZ Drainage of Left Upper Leg Skin, External Approach (ICD-10-PCS; 2021-11-01)
PROC: 0JBM0ZZ Excision of Left Upper Leg Subcutaneous Tissue and Fascia, Open Approach (ICD-10-PCS; principal; 2021-11-03)
PROC: 02HV33Z Insertion of Infusion Device into Superior Vena Cava, Percutaneous Approach (ICD-10-PCS; 2021-11-03)
PROC: B5181ZA Fluoroscopy of Superior Vena Cava using Low Osmolar Contrast, Guidance (ICD-10-PCS; 2021-11-03)
PROC: B548ZZA Ultrasonography of Superior Vena Cava, Guidance (ICD-10-PCS; 2021-11-03)
DX: L02.416 Cutaneous abscess of left lower limb (principal); R78.81 Bacteremia; I10 Essential (primary) hypertension; B95.5 Unspecified streptococcus as the cause of diseases classified elsewhere; E11.65 Type 2 diabetes mellitus with hyperglycemia; B95.7 Other staphylococcus as the cause of diseases classified elsewhere; J44.9 Chronic obstructive pulmonary disease, unspecified; Z20.822 Contact with and (suspected) exposure to COVID-19; Z87.891 Personal history of nicotine dependence
CPT/HCPCS: 36415; 36573; 73701; 80048; 80053; 80202; 82962; 83036; 85025; 85651; 86140; 87070; 87075; 87077; 87186; 87426; 88305; 90686; 90715; 93005; 99285; C1725; C1769; J0690; J0696; J1170; J1815; J1885; J2250; J2270; J2543; J2704; J3010; J3370; J3490; J7030; J7060